=== PATIENT | male | born 1970 | race Hispanic/Latino ===

== ENCOUNTER 2017-10-03 10:07 | Emergency (ER) | payer OTHER ==
[~2017-10-03] VITALS: Ht 167.6 cm; Wt 87.7 kg
[2017-10-03 10:42] LABS: BASOPHIL (%) 0.2 % (0-1); EOSINOPHIL (%) 0.4 % (0-5); EOSINOPHIL COUNT 0.1 K/uL (0-0.3); HEMATOCRIT 48.7 % (38.0-50.0); HEMOGLOBIN 16.4 G/DL (12.5-16.6); IMMATURE GRANULOCYTE (%) 0.3 % (0.0-0.7); LYMPHOCYTE (%) 8.2 % (15-42); MCH 29.5 PG (29.0-34.0); MCHC 33.7 G/DL (30.0-36.0); MCV 87.7 FL (86-99); MONOCYTE (%) 4.2 % (3-12); MONOCYTE COUNT 0.5 K/uL (0-0.8); NEUTROPHIL (%) 86.7 % (45-76); NEUTROPHIL COUNT 10.9 K/uL (1.8-6.4); PLATELET COUNT 262 K/uL (156-360); RBC DIS.WIDTH-CV 12.6 % (11.8-14.6); RBC DIS.WIDTH-SD 41.1 % (39-53); RED BLOOD COUNT 5.55 M/uL (4.00-5.50); WHITE BLOOD COUNT 12.6 K/uL (4.1-10.2)
[2017-10-03 10:43] LABS: APPEARANCE CLEAR ((CLEAR)); BILIRUBIN NEGATIVE; BLOOD MODERATE; COLOR YELLOW ((YELLOW)); GLUCOSE (STRIP) NEGATIVE; KETONES NEGATIVE; LEUKOCYTES NEGATIVE; NITRITE NEGATIVE; PROTEIN (STRIP) 30; SPECIFIC GRAVITY 1.013 (1.000-1.030); UROBILINOGEN 0.2 MG/DL (0.2-1.0)
[2017-10-03 10:45] LABS: BACTERIA NONE SEEN /HPF; EPITHELIAL CELLS NONE SEEN /HPF; MUCUS TRACE /LPF; RED BLOOD CELLS TNTC /HPF (0-5); UCUL ADDED? YES; WHITE BLOOD CELLS 0-5 /HPF (0-5)
[2017-10-03 10:54] LABS: ALBUMIN 4.7 g/dL (3.2-4.8)
[2017-10-03 10:55] LABS: CHLORIDE 105 mEq/L (99-109); SODIUM 142 mEq/L (136-147)
[2017-10-03 10:57] LABS: GLUCOSE 131 mg/dL (70-99); TOTAL PROTEIN 7.8 g/dL (6.4-8.3)
[2017-10-03 10:59] LABS: TOTAL BILIRUBIN 0.6 mg/dL (0.0-1.0)
[2017-10-03 11:00] LABS: ALKALINE PHOSPHATASE 67 IU/L (3-129)
[2017-10-03 11:01] LABS: CREATININE 1.1 mg/dL (0.6-1.3)
[2017-10-03 11:02] LABS: AST (GOT) 29 IU/L (2-34); UREA NITROGEN (BUN) 14 mg/dL (9-23)
[2017-10-03 11:04] LABS: ALT (GPT) 41 IU/L (3-49)
[2017-10-03 11:09] LABS: GFR ESTIMATE (CALCULATED) > 59 mL/min/ (58.99-99999)
[2017-10-03] MEDS ORDERED: ZOFRAN ODT4 MG PO (11:47)
[2017-10-03] MEDS ORDERED: MOTRIN600 MG PO (11:47)
[2017-10-03] MEDS ORDERED: PERCOCET 5/31 TABLET PO (11:47)
[2017-10-03] MEDS ORDERED: FLOMAX0.4 MG PO (11:47)
[2017-10-03 12:11] VITALS: BP 156/71
== END 2017-10-03 12:14 | disposition home or self-care (01) ==
LOC: EME 10:07
PROVIDERS: Emergency Medicine
DX: N13.2 Hydronephrosis with renal and ureteral calculous obstruction (principal); Z87.442 Personal history of urinary calculi
CPT/HCPCS: 74176; 80053; 81003; 85025; 87086; 99281; 99285; J1885; J2405; J7040